=== PATIENT | female | born 1980 | race Caucasian/White ===

== ENCOUNTER 2017-10-26 16:52 | Emergency (ER) | payer SELFPAY ==
[~2017-10-26] VITALS: Ht 152.4 cm; Wt 61.1 kg
[2017-10-26] MEDS ORDERED: NORCO 5/3251 TABLET PO (18:40)
[2017-10-26] MEDS ORDERED: SKELAXIN800 MG PO (18:40)
[2017-10-26] MEDS ORDERED: PREDNISONE10 M1 PO (18:40)
[2017-10-26 19:00] VITALS: BP 144/79
== END 2017-10-26 19:00 | disposition home or self-care (01) ==
LOC: EME 16:52 → RME 16:52
DX: M54.12 Radiculopathy, cervical region (principal); F17.200 Nicotine dependence, unspecified, uncomplicated; Z85.41 Personal history of malignant neoplasm of cervix uteri
CPT/HCPCS: 72040; J1885